=== PATIENT | female | born 1940 | race Hispanic/Latino ===

== ENCOUNTER 2017-10-13 18:37 | Observation (INO) | payer MEDICARE, BC ==
[2017-10-13] MEDS ORDERED: Aspirin 325 mg EC Tablets PO STA (19:37)
--- NOTE | 2017-10-13 19:37 | C.PDOC ---
History Of Present Illness Patient presents to the ER with a complaint of intermittent chest pain for the past 2 days, associated with diffuse body aches. Patient is currently speaking in complete sentences, states she feels like her chest discomfort has now subsided. Patient also notes she felt her blood pressure has been elevating, she spoke with her PMD who increased her dose of HTN medication. Denies SOB, fever, or chills. Time Seen by Provider: 10/13/17 19:37 Chief Complaint (Nursing): Flu-like Symptoms History Per: Patient History/Exam Limitations: no limitations Onset/Duration Of Symptoms: Days, Intermittent Episodes Current Symptoms Are (Timing): Still Present Severity: Moderate Pain Scale Rating Of: 4 Reports Recently: Treated By A Physician Recent travel outside of the [place]: No Additional History Per: Family Past Medical History Reviewed: Historical Data, Nursing Documentation, Vital Signs Vital Signs: Last Vital Signs Temp 97.7 F 10/13/17 18:42 Pulse 61 10/13/17 18:42 Resp 97 H 10/13/17 18:42 BP 171/17 H 10/13/17 18:42 Pulse Ox 99 10/13/17 21:28 - Medical History PMH: Depression, HTN, Hypercholesterolemia Family History: States: No Known Family Hx - Social History Hx Alcohol Use: No Hx Substance Use: No Review Of Systems Constitutional: Negative for: Fever, Chills Cardiovascular: Positive for: Chest Pain. Negative for: Palpitations Respiratory: Negative for: Cough, Shortness of Breath Gastrointestinal: Negative for: Nausea, Vomiting Musculoskeletal: Positive for: Other (Body aches) Skin: Negative for: Rash Neurological: Negative for: Weakness Psych: Negative for: Anxiety Physical Exam - Physical Exam Appears: Non-toxic Skin: Warm, Dry Head: Normacephalic Eye(s): bilateral: Normal Inspection Oral Mucosa: Moist Neck: Supple Chest: Symmetrical, No Tenderness Cardiovascular: Rhythm Regular Respiratory: No Rales, No Rhonchi, No Wheezing Gastrointestinal/Abdominal: Soft, No Tenderness Back: Normal Inspection Extremity: Normal ROM Extremity: Bilateral: Atraumatic Pulses: Left Dorsalis Pedis: Normal, Right Dorsalis Pedis: Normal Neurological/Psych: Oriented x3 Gait: Steady ED Course And Treatment - Laboratory Results Result Diagrams: 10/13/17 19:54 10/13/17 19:54 ECG: Interpreted By Me, Viewed By Me ECG Rhythm: Sinus Rhythm (59), Nonspecific Changes O2 Sat by Pulse Oximetry: 99 (Room air) Pulse Ox Interpretation: Normal - Radiology CXR: Interpreted by Me, Viewed By Me CXR Interpretation: No: Infiltrates, Fracture, Pnemothorax Progress Note: EKG, blood work, CXR, and urinalysis ordered. Aspirin and tamiflu administered. Disposition Discussed With DrRogers: Ankit Sandoval Comment: accepted the pt on his service and took over the care at 9:57PM Doctor Will See Patient In The: ED Counseled Patient/Family Regarding: Studies Performed, Diagnosis - Disposition Disposition: HOSPITALIZED Disposition Time: 19:37 Condition: FAIR Forms: [facility] (Icelandic) - POA Present On Arrival: None - Clinical Impression Clinical Impression: Chest pain Decision To Admit - Pt Status Changed To: Hospital Disposition Of: Observation - . Bed Request Type: Telemetry Patient Diagnosis: Chest pain
[2017-10-13 19:57] LABS: BASO % 0.4 % (0.0-2.0); EOS # 0.1 K/uL (0.0-0.7); EOS % 1.1 % (0.0-4.0); HEMOGLOBIN 13.2 g/dL (11.0-16.0); LYMPH # 2.6 K/uL (1.0-4.3); LYMPH % 29.4 % (20.0-40.0); MEAN CELL VOLUME 91.8 fL (81.0-99.0); MEAN CORPUSCULAR HEMOGLOBIN 32.3 pg (27.0-31.0); MEAN CORPUSCULAR HGB CONC 35.2 g/dL (33.0-37.0); MEAN PLATELET VOLUME 8.5 fL (7.2-11.7); MONO # 0.6 K/uL (0.0-0.8); MONO % 7.2 % (0.0-10.0); NEUT # 5.5 K/uL (1.8-7.0); NEUT % 61.9 % (50.0-75.0); RBC 4.07 Mil/uL (3.80-5.20); RED CELL DISTRIBUTION WIDTH 13.6 % (11.5-14.5); WHITE BLOOD COUNT 8.9 K/uL (4.8-10.8)
[2017-10-13] MEDS ORDERED: Aspirin 325 mg EC Tablets PO ONE (19:59)
[2017-10-13 20:09] LABS: INR 0.9; PROTHROMBIN TIME 10.4 SECONDS (9.7-12.2)
[2017-10-13 20:10] LABS: ALB/GLOB RATIO 1.3 (1.0-2.1); ALBUMIN 4.1 g/dL (3.5-5.0); ALT/SGPT 38 U/L (9-52); AST/SGOT 31 U/L (14-36); BLOOD UREA NITROGEN 11 mg/dL (7-17); CALCIUM 9.1 mg/dl (8.6-10.4); GFR AFRICAN-AMERICAN > 60; GFR NON-AFRICAN AMERICAN > 60
[2017-10-13 20:30] LABS: SQUAMOUS EPITHIAL < 1 /hpf (0-5); URINE BACTERIA OCC (<OCC); URINE BILIRUBIN NEGATIVE (NEGATIVE); URINE BLOOD NEGATIVE (NEGATIVE); URINE CLARITY Clear (Clear); URINE COLOR Yellow (YELLOW); URINE GLUCOSE (UA) NORMAL (Normal); URINE LEUKOCYTE ESTERASE 1+ Leu/uL (Negative); URINE NITRATE NEGATIVE (NEGATIVE); URINE PROTEIN NEGATIVE (NEGATIVE); URINE UROBILINOGEN NORMAL mg/dL (0.2-1.0)
--- NOTE | 2017-10-13 23:45 | CP.PCM.HP ---
<JavierLenin R - Last Filed: 10/14/17 00:19> History of Present Illness - History of Present Illness History of Present Illness: CC: "I'm feeling weak" HPI: Mrs Del Cid is a 77 year old female who presented to the ER today because starting 3 days ago she began feeling progressively weak and tired. Associated symptoms include body aches (back, arms, neck) - she's used a heating pad for relief from the body aches which helped significantly. This past Thursday she had a 2 hour episode of mid-sternal chest pain that was worse with movement. She described the pain as burning and deep. She denied palpitations. She is unsure if the chest pain was heartburn - she had a gastric ulcer in 2016 diagnosed via EGD. Additionally she states her BP has been elevated recently. She's been checking her BP at home for the past 1 week with occasional readings of systolic in the 190s. She states she is compliant with her medications and follows-up with her PMD as instructed. When asked if she was aware of any sick contacts, she replied her grandchildren have been sick recently with lingering coughs. PMD: Dr King PMHx: Breast CA s/p lumpectomy and chemo/radiation, HTN, HLD, Hx of Gastric ulcer, Depression, Sleep Disorder, Osteoporosis PSHx: Lumpectomy 2010, EGD/Colonoscopy 2016 - showed gastric ulcer and diverticulosis Allergies: Codeine - nausea, PCN - Stomach aches, Ciprofloxacin - Stomach aches Home Meds: Aspirin 81mg PO every other day (takes every other day due to hx of gastric ulcer), Amlodipine 10mg PO QD, Anastrozole 1mg O QD, Colesevelam 625mg PO BID, Escitalopram 20mg PO QD, Ezetimibe 10mg PO QD, HCTZ 25mg PO QD, Telmisartan 40mg PO QD, Trazodone 150mg PO QD FamHx: Father and Grandmother had CVAs; Mother had rare brain disease SocialHx: Smoked tobacco 1ppd for 20 years - quit in 1996, Drinks a glass a wine with dinner, Marijuana use in distant past, Lives with , Used to be a middle school director Code Status: Full Code Present on Admission - Present on Admission Any Indicators Present on Admission: No Review of Systems - Constitutional Constitutional: Fatigue, Lethargy, Malaise. absent: Chills, Fever, Sleep Apnea , Weight Gain, Weight Loss - EENT Eyes: absent: Change in Vision - Cardiovascular Cardiovascular: absent: Chest Pain, Chest Pain at Rest, Chest Pain with Activity , Dyspnea, Palpitations, Syncope - Respiratory Respiratory: absent: Cough, Dyspnea - Gastrointestinal Gastrointestinal: absent: Abdominal Pain, Diarrhea, Heartburn, Nausea, Vomiting - Genitourinary Genitourinary: absent: Dysuria - Integumentary Integumentary: absent: Bleeding Lesions - Neurological Neurological: absent: Confusion, Dizziness, Focal Weakness Past Patient History - Past Social History Smoking Status: Never Smoked - CARDIAC Hx Hypercholesterolemia: Yes Hx Hypertension: Yes - HEMATOLOGICAL/ONCOLOGICAL Hx Cancer: Yes (Breast Cancer) - PSYCHIATRIC Hx Depression: Yes Hx Substance Use: No - SURGICAL HISTORY Other/Comment: lumpectomy 2007 Meds Allergies/Adverse Reactions: Allergies Allergy/AdvReac Type Severity Reaction Status Date / Time codeine Allergy Verified 10/13/17 18:45 Penicillins Allergy Verified 10/13/17 18:45 Physical Exam - Constitutional Appears: Well, Non-toxic, No Acute Distress - Head Exam Head Exam: ATRAUMATIC, NORMAL INSPECTION - Eye Exam Eye Exam: EOMI Pupil Exam: PERRL - ENT Exam ENT Exam: Mucous Membranes Moist, Normal Oropharynx - Neck Exam Neck exam: Positive for: Normal Inspection. Negative for: Tenderness - Respiratory Exam Respiratory Exam: Clear to Auscultation Bilateral, NORMAL BREATHING PATTERN. absent: Rales, Rhonchi, Wheezes - Cardiovascular Exam Cardiovascular Exam: REGULAR RHYTHM, RRR, +S1, +S2. absent: Bradycardia, Tachycardia, Gallop, JVD, Rubs, Systolic Murmur - GI/Abdominal Exam GI & Abdominal Exam: Normal Bowel Sounds, Soft. absent: Distended, Guarding, Mass, Organomegaly, Tenderness - Extremities Exam Extremities exam: Positive for: normal capillary refill, normal inspection, pedal pulses present. Negative for: pedal edema, tenderness - Back Exam Back exam: NORMAL INSPECTION. absent: CVA tenderness (L), CVA tenderness (R), rash noted, tenderness - Neurological Exam Neurological exam: Alert, CN II-XII Intact, Oriented x3, Reflexes Normal - Psychiatric Exam Psychiatric exam: Normal Affect, Normal Mood - Skin Skin Exam: Intact, Normal Color, Warm Results - Vital Signs Recent Vital Signs: Last Vital Signs Temp 97.7 F 10/13/17 18:42 Pulse 61 10/13/17 23:03 Resp 20 10/13/17 23:03 BP 142/60 10/13/17 23:03 Pulse Ox 96 10/13/17 23:03 - Labs Result Diagrams: 10/13/17 19:54 10/13/17 19:54 Labs: Laboratory Results - last 24 hr 10/13/17 10/13/17 10/13/17 19:54 19:54 19:54 WBC 8.9 RBC 4.07 Hgb 13.2 Hct 37.4 MCV 91.8 MCH 32.3 H MCHC 35.2 RDW 13.6 Plt Count 192 D MPV 8.5 Neut % (Auto) 61.9 Lymph % (Auto) 29.4 [place] % (Auto) 7.2 Eos % (Auto) 1.1 Baso % (Auto) 0.4 Neut # (Auto) 5.5 Lymph # (Auto) 2.6 [place] # (Auto) 0.6 Eos # (Auto) 0.1 Baso # (Auto) 0.0 PT 10.4 INR 0.9 APTT 27 Sodium 127 L Potassium 3.7 Chloride 93 L Carbon Dioxide 27 Anion Gap 11 BUN 11 Creatinine 0.6 L Est GFR ( Amer) > 60 Est GFR (Non-Af Amer) > 60 Random Glucose 91 Calcium 9.1 Total Bilirubin 0.4 AST 31 ALT 38 Alkaline Phosphatase 36 L Troponin I < 0.0120 Total Protein 7.1 Albumin 4.1 Globulin 3.0 Albumin/Globulin Ratio 1.3 Urine Color Urine Clarity Urine pH Ur Specific [place] Urine Protein Urine Glucose (UA) Urine Ketones Urine Blood Urine Nitrate Urine Bilirubin Urine Urobilinogen Ur Leukocyte Esterase Urine WBC (Auto) Urine RBC (Auto) Ur Squamous Epith Cells Urine Bacteria 10/13/17 20:24 WBC RBC Hgb Hct MCV MCH MCHC RDW Plt Count MPV Neut % (Auto) Lymph % (Auto) [place] % (Auto) Eos % (Auto) Baso % (Auto) Neut # (Auto) Lymph # (Auto) [place] # (Auto) Eos # (Auto) Baso # (Auto) PT INR APTT Sodium Potassium Chloride Carbon Dioxide Anion Gap BUN Creatinine Est GFR ( Amer) Est GFR (Non-Af Amer) Random Glucose Calcium Total Bilirubin AST ALT Alkaline Phosphatase Troponin I Total Protein Albumin Globulin Albumin/Globulin Ratio Urine Color Yellow Urine Clarity Clear Urine pH 6.0 Ur Specific [place] 1.010 Urine Protein Negative Urine Glucose (UA) Normal Urine Ketones Negative Urine Blood Negative Urine Nitrate Negative Urine Bilirubin Negative Urine Urobilinogen Normal Ur Leukocyte Esterase 1+ H Urine WBC (Auto) 8 H Urine RBC (Auto) < 1 Ur Squamous Epith Cells < 1 Urine Bacteria Occ H Assessment & Plan (1) Chest pain Assessment and Plan: Rule out ACS 1st Troponin NEGATIVE EKG showed sinus bradycardia, no ST or T wave changes identified by technical writer F/U serial ROMIs/EKGs F/U ECHO Meds: Aspirin 325mg PO ONCE in ED Aspirin 81mg PO QD Crestor 10mg PO HS Status: Acute Priority: High (2) Fatigue Assessment and Plan: F/U Flu swab F/U TSH/T4 Tamiflu 75mg PO BID Status: Acute (3) HTN (hypertension) Assessment and Plan: BP well controlled Cont home med Amlodipine 10mg PO QD Cont home med HCTZ 25mg PO QD Cont home med Telmisartan 40mg PO QD Heart healthy diet w/ salt restriction Status: Chronic Priority: High (4) Hx of breast cancer Assessment and Plan: Cont home med Anastrozole 1mg PO QD Status: Chronic Priority: Medium (5) HLD (hyperlipidemia) Assessment and Plan: Cont home med Ezetimibe 10mg PO QD Cont home med Colesevelam Status: Chronic Priority: Medium (6) Hx of gastric ulcer Assessment and Plan: Gastric ulcer identified in 2016 via EGD Patient was Rx'd PPI but no longer takes it (only when she has heartburn) Protonix 40mg PO QD Status: Chronic Priority: Medium (7) Sleep disorder Assessment and Plan: Cont home med Trazodone 150mg PO HS Status: Chronic Priority: Medium (8) Depression Assessment and Plan: Cont home med Escitalopram 20mg PO QD Status: Chronic Priority: Medium (9) Prophylactic measure Assessment and Plan: SCDs, Lovenox 40mg SC QD Protonix 40mg PO QD Status: Acute Priority: Low <Ankit Sandoval - Last Filed: 10/14/17 06:25> Results - Vital Signs Recent Vital Signs: Last Vital Signs Temp 97.4 F L 10/14/17 00:11 Pulse 57 L 10/14/17 01:00 Resp 18 10/14/17 00:11 BP 159/74 H 10/14/17 00:11 Pulse Ox 100 10/14/17 00:11 - Labs Result Diagrams: 10/13/17 19:54 10/13/17 19:54 Labs: Laboratory Results - last 24 hr 10/13/17 10/13/17 10/13/17 19:54 19:54 19:54 WBC 8.9 RBC 4.07 Hgb 13.2 Hct 37.4 MCV 91.8 MCH 32.3 H MCHC 35.2 RDW 13.6 Plt Count 192 D MPV 8.5 Neut % (Auto) 61.9 Lymph % (Auto) 29.4 [place] % (Auto) 7.2 Eos % (Auto) 1.1 Baso % (Auto) 0.4 Neut # (Auto) 5.5 Lymph # (Auto) 2.6 [place] # (Auto) 0.6 Eos # (Auto) 0.1 Baso # (Auto) 0.0 PT 10.4 INR 0.9 APTT 27 Sodium 127 L Potassium 3.7 Chloride 93 L Carbon Dioxide 27 Anion Gap 11 BUN 11 Creatinine 0.6 L Est GFR ( Amer) > 60 Est GFR (Non-Af Amer) > 60 Random Glucose 91 Calcium 9.1 Total Bilirubin 0.4 AST 31 ALT 38 Alkaline Phosphatase 36 L Total Creatine Kinase CK-MB (Mass) Troponin I < 0.0120 Total Protein 7.1 Albumin 4.1 Globulin 3.0 Albumin/Globulin Ratio 1.3 TSH 3rd Generation Urine Color Urine Clarity Urine pH Ur Specific [place] Urine Protein Urine Glucose (UA) Urine Ketones Urine Blood Urine Nitrate Urine Bilirubin Urine Urobilinogen Ur Leukocyte Esterase Urine WBC (Auto) Urine RBC (Auto) Ur Squamous Epith Cells Urine Bacteria Influenza Typ A,B (EIA) 10/13/17 10/13/17 10/13/17 20:24 23:33 23:55 WBC RBC Hgb Hct MCV MCH MCHC RDW Plt Count MPV Neut % (Auto) Lymph % (Auto) [place] % (Auto) Eos % (Auto) Baso % (Auto) Neut # (Auto) Lymph # (Auto) [place] # (Auto) Eos # (Auto) Baso # (Auto) PT INR APTT Sodium Potassium Chloride Carbon Dioxide Anion Gap BUN Creatinine Est GFR ( Amer) Est GFR (Non-Af Amer) Random Glucose Calcium Total Bilirubin AST ALT Alkaline Phosphatase Total Creatine Kinase CK-MB (Mass) Troponin I Total Protein Albumin Globulin Albumin/Globulin Ratio TSH 3rd Generation 1.45 Urine Color Yellow Urine Clarity Clear Urine pH 6.0 Ur Specific [place] 1.010 Urine Protein Negative Urine Glucose (UA) Normal Urine Ketones Negative Urine Blood Negative Urine Nitrate Negative Urine Bilirubin Negative Urine Urobilinogen Normal Ur Leukocyte Esterase 1+ H Urine WBC (Auto) 8 H Urine RBC (Auto) < 1 Ur Squamous Epith Cells < 1 Urine Bacteria Occ H Influenza Typ A,B (EIA) Negative for flu a/b 10/14/17 01:54 WBC RBC Hgb Hct MCV MCH MCHC RDW Plt Count MPV Neut % (Auto) Lymph % (Auto) [place] % (Auto) Eos % (Auto) Baso % (Auto) Neut # (Auto) Lymph # (Auto) [place] # (Auto) Eos # (Auto) Baso # (Auto) PT INR APTT Sodium Potassium Chloride Carbon Dioxide Anion Gap BUN Creatinine Est GFR ( Amer) Est GFR (Non-Af Amer) Random Glucose Calcium Total Bilirubin AST ALT Alkaline Phosphatase Total Creatine Kinase 72 CK-MB (Mass) 1.28 Troponin I < 0.0120 Total Protein Albumin Globulin Albumin/Globulin Ratio TSH 3rd Generation Urine Color Urine Clarity Urine pH Ur Specific [place] Urine Protein Urine Glucose (UA) Urine Ketones Urine Blood Urine Nitrate Urine Bilirubin Urine Urobilinogen Ur Leukocyte Esterase Urine WBC (Auto) Urine RBC (Auto) Ur Squamous Epith Cells Urine Bacteria Influenza Typ A,B (EIA) Assessment & Plan - Date & Time Date: 10/14/17 (I have seen and examined the patient. I agree with the findings and plan of care as documented by Dr. Herrera. Patient with chest pain. History of hypertension and hypercholesterolemia. Continue home meds. ROMIx3 with EKG. Aspirin. Monitor for acute changes.) Time: 06:24 Attending/Attestation - Attestation I have personally seen and examined this patient.: Yes I have fully participated in the care of the patient.: Yes I have reviewed all pertinent clinical information: Yes
[2017-10-14 00:13] VITALS: RESP 18
[2017-10-14 02:20] LABS: CK-MB 1.28 ng/mL (0.0-3.38)
--- NOTE | 2017-10-14 07:20 | RAD ---
PROCEDURE: CHEST RADIOGRAPH, 1 VIEW HISTORY: chest pain COMPARISON: None available. FINDINGS: LUNGS: No acute infiltrate bilaterally. There is mild right hemidiaphragm elevation. Rotation of the patient toward the right accentuates the ascending thoracic aorta. PLEURA: No pneumothorax or pleural fluid seen. CARDIOVASCULAR: Questionable cardiomegaly. No pulmonary vascular derangement. OSSEOUS STRUCTURES: No significant abnormalities. VISUALIZED UPPER ABDOMEN: Normal. OTHER FINDINGS: None. IMPRESSION: Elevated right hemidiaphragm. No acute infiltrate bilaterally, pleural effusion or pneumothorax. Questionable cardiomegaly.
--- NOTE | 2017-10-14 07:49 | CARD ---
APPROVED REPORT EKG Measurement Heart [id number] <Conclusion> Sinus bradycardia Possible Left atrial enlargement Inferior infarct, age undetermined Abnormal ECG
[2017-10-14 08:04] VITALS: BP 134/62; TEMP 97.8; O2SAT 95
[2017-10-14 08:19] LABS: BASO % 0.4 % (0.0-2.0); EOS # 0.1 K/uL (0.0-0.7); EOS % 0.9 % (0.0-4.0); HEMOGLOBIN 12.9 g/dL (11.0-16.0); LYMPH # 2.1 K/uL (1.0-4.3); LYMPH % 26.5 % (20.0-40.0); MEAN CELL VOLUME 91.5 fL (81.0-99.0); MEAN CORPUSCULAR HEMOGLOBIN 32.7 pg (27.0-31.0); MEAN CORPUSCULAR HGB CONC 35.8 g/dL (33.0-37.0); MEAN PLATELET VOLUME 8.8 fL (7.2-11.7); MONO # 0.7 K/uL (0.0-0.8); MONO % 8.8 % (0.0-10.0); NEUT # 4.9 K/uL (1.8-7.0); NEUT % 63.4 % (50.0-75.0); RBC 3.95 Mil/uL (3.80-5.20); RED CELL DISTRIBUTION WIDTH 13.3 % (11.5-14.5); WHITE BLOOD COUNT 7.8 K/uL (4.8-10.8)
[2017-10-14 08:31] LABS: ALB/GLOB RATIO 1.3 (1.0-2.1); ALBUMIN 3.7 g/dL (3.5-5.0); ALT/SGPT 32 U/L (9-52); AST/SGOT 27 U/L (14-36); BLOOD UREA NITROGEN 10 mg/dL (7-17); CALCIUM 8.8 mg/dl (8.6-10.4); GFR AFRICAN-AMERICAN > 60; GFR NON-AFRICAN AMERICAN > 60
[2017-10-14 08:38] LABS: CK-MB 1.09 ng/mL (0.0-3.38)
--- NOTE | 2017-10-14 09:45 | CP.PCM.DIS ---
Provider - Provider Date of Admission: 10/13/17 21:57 Attending physician: Ankit Sandoval MD Time Spent in preparation of Discharge (in minutes): 55 Hospital Course - Lab Results Lab Results: Most Recent Lab Values WBC 7.8 K/uL (4.8-10.8) 10/14/17 08:20 RBC 3.95 Mil/uL (3.80-5.20) 10/14/17 08:20 Hgb 12.9 g/dL (11.0-16.0) 10/14/17 08:20 Hct 36.1 % (34.0-47.0) 10/14/17 08:20 MCV 91.5 fL (81.0-99.0) 10/14/17 08:20 MCH 32.7 pg (27.0-31.0) H 10/14/17 08:20 MCHC 35.8 g/dL (33.0-37.0) 10/14/17 08:20 RDW 13.3 % (11.5-14.5) 10/14/17 08:20 Plt Count 187 K/uL (130-400) 10/14/17 08:20 MPV 8.8 fL (7.2-11.7) 10/14/17 08:20 Neut % (Auto) 63.4 % (50.0-75.0) 10/14/17 08:20 Lymph % (Auto) 26.5 % (20.0-40.0) 10/14/17 08:20 [place] % (Auto) 8.8 % (0.0-10.0) 10/14/17 08:20 Eos % (Auto) 0.9 % (0.0-4.0) 10/14/17 08:20 Baso % (Auto) 0.4 % (0.0-2.0) 10/14/17 08:20 Neut # (Auto) 4.9 K/uL (1.8-7.0) 10/14/17 08:20 Lymph # (Auto) 2.1 K/uL (1.0-4.3) 10/14/17 08:20 [place] # (Auto) 0.7 K/uL (0.0-0.8) 10/14/17 08:20 Eos # (Auto) 0.1 K/uL (0.0-0.7) 10/14/17 08:20 Baso # (Auto) 0.0 K/uL (0.0-0.2) 10/14/17 08:20 PT 10.4 SECONDS (9.7-12.2) 10/13/17 19:54 INR 0.9 10/13/17 19:54 APTT 27 SECONDS (21-34) 10/13/17 19:54 Sodium 132 mmol/L (132-148) 10/14/17 08:05 Potassium 3.8 mmol/L (3.6-5.2) 10/14/17 08:05 Chloride 96 mmol/L (98-107) L 10/14/17 08:05 Carbon Dioxide 28 mmol/L (22-30) 10/14/17 08:05 Anion Gap 11 (10-20) 10/14/17 08:05 BUN 10 mg/dL (7-17) 10/14/17 08:05 Creatinine 0.7 mg/dL (0.7-1.2) 10/14/17 08:05 Est GFR ( Amer) > 60 10/14/17 08:05 Est GFR (Non-Af Amer) > 60 10/14/17 08:05 Random Glucose 91 mg/dL (65-105) 10/14/17 08:05 Calcium 8.8 mg/dl (8.6-10.4) 10/14/17 08:05 Total Bilirubin 0.6 mg/dL (0.2-1.3) 10/14/17 08:05 AST 27 U/L (14-36) 10/14/17 08:05 ALT 32 U/L (9-52) 10/14/17 08:05 Alkaline Phosphatase 28 U/L (38-126) L D 10/14/17 08:05 Total Creatine Kinase 70 U/L (30-135) 10/14/17 08:05 CK-MB (Mass) 1.09 ng/mL (0.0-3.38) 10/14/17 08:05 Troponin I < 0.0120 ng/mL (0.00-0.120) 10/14/17 08:05 Total Protein 6.6 g/dL (6.3-8.3) 10/14/17 08:05 Albumin 3.7 g/dL (3.5-5.0) 10/14/17 08:05 Globulin 2.9 gm/dL (2.2-3.9) 10/14/17 08:05 Albumin/Globulin Ratio 1.3 (1.0-2.1) 10/14/17 08:05 Free T4 0.83 ng/dL (0.78-2.19) 10/14/17 08:05 TSH 3rd Generation 1.45 mIU/L (0.46-4.68) 10/13/17 23:33 Urine Color Yellow (YELLOW) 10/13/17 20:24 Urine Clarity Clear (Clear) 10/13/17 20:24 Urine pH 6.0 (5.0-8.0) 10/13/17 20:24 Ur Specific [place] 1.010 (1.003-1.030) 10/13/17 20:24 Urine Protein Negative mg/dL (NEGATIVE) 10/13/17 20:24 Urine Glucose (UA) Normal mg/dL (Normal) 10/13/17 20:24 Urine Ketones Negative mg/dL (NEGATIVE) 10/13/17 20:24 Urine Blood Negative (NEGATIVE) 10/13/17 20:24 Urine Nitrate Negative (NEGATIVE) 10/13/17 20:24 Urine Bilirubin Negative (NEGATIVE) 10/13/17 20:24 Urine Urobilinogen Normal mg/dL (0.2-1.0) 10/13/17 20:24 Ur Leukocyte Esterase 1+ [place]ara/uL (Negative) H 10/13/17 20:24 Urine WBC (Auto) 8 /hpf (0-5) H 10/13/17 20:24 Urine RBC (Auto) < 1 /hpf (0-3) 10/13/17 20:24 Ur Squamous Epith Cells < 1 /hpf (0-5) 10/13/17 20:24 Urine Bacteria Occ (<OCC) H 10/13/17 20:24 Influenza Typ A,B (EIA) Negative for flu a/b (NEGATIVE) 10/13/17 23:55 - Hospital Course Hospital Course: Upon Admission: CC: "I'm feeling weak" HPI: Mrs Del Cid is a 77 year old female who presented to the ER today because starting 3 days ago she began feeling progressively weak and tired. Associated symptoms include body aches (back, arms, neck) - she's used a heating pad for relief from the body aches which helped significantly. This past Thursday she had a 2 hour episode of mid-sternal chest pain that was worse with movement. She described the pain as burning and deep. She denied palpitations. She is unsure if the chest pain was heartburn - she had a gastric ulcer in 2016 diagnosed via EGD. Additionally she states her BP has been elevated recently. She's been checking her BP at home for the past 1 week with occasional readings of systolic in the 190s. She states she is compliant with her medications and follows-up with her PMD as instructed. When asked if she was aware of any sick contacts, she replied her grandchildren have been sick recently with lingering coughs. PMD: Dr King PMHx: Breast CA s/p lumpectomy and chemo/radiation, HTN, HLD, Hx of Gastric ulcer, Depression, Sleep Disorder, Osteoporosis PSHx: Lumpectomy 2010, EGD/Colonoscopy 2016 - showed gastric ulcer and diverticulosis Allergies: Codeine - nausea, PCN - Stomach aches, Ciprofloxacin - Stomach aches Home Meds: Aspirin 81mg PO every other day (takes every other day due to hx of gastric ulcer), Amlodipine 10mg PO QD, Anastrozole 1mg O QD, Colesevelam 625mg PO BID, Escitalopram 20mg PO QD, Ezetimibe 10mg PO QD, HCTZ 25mg PO QD, Telmisartan 40mg PO QD, Trazodone 150mg PO QD FamHx: Father and Grandmother had CVAs; Mother had rare brain disease SocialHx: Smoked tobacco 1ppd for 20 years - quit in 1996, Drinks a glass a wine with dinner, Marijuana use in distant past, Lives with , 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 (1) Chest pain Assessment and Plan: Rule out ACS Troponin x3 NEGATIVE EKG showed sinus bradycardia, no ST or T wave changes identified by display card writer F/U ECHO - patient will need to follow up results with PMD Dr. King. Meds: Aspirin 325mg PO ONCE in ED Aspirin 81mg PO QD Crestor 10mg PO HS Status: Acute Priority: High (2) Fatigue Assessment and Plan: Flu swab - negative TSH/T4- WNL Tamiflu 75mg PO BID x 5 days Status: Acute (3) HTN (hypertension) Assessment and Plan: BP well controlled Cont home med Amlodipine 10mg PO QD Cont home med HCTZ 25mg PO QD Cont home med Telmisartan 40mg PO QD Heart healthy diet w/ salt restriction Status: Chronic Priority: High (4) Hx of breast cancer Assessment and Plan: Cont home med Anastrozole 1mg PO QD Status: Chronic Priority: Medium (5) HLD (hyperlipidemia) Assessment and Plan: Cont home med Ezetimibe 10mg PO QD Cont home med Colesevelam Status: Chronic Priority: Medium (6) Hx of gastric ulcer Assessment and Plan: Gastric ulcer identified in 2016 via EGD Patient was Rx'd PPI but no longer takes it (only when she has heartburn) Protonix 40mg PO QD Status: Chronic Priority: Medium (7) Sleep disorder Assessment and Plan: Cont home med Trazodone 150mg PO HS Status: Chronic Priority: Medium (8) Depression Assessment and Plan: Cont home med Escitalopram 20mg PO QD Status: Chronic Priority: Medium Please review EMR for full record. Discharge Exam - Additional Findings Additional findings: - Constitutional Appears: Well, Non-toxic, No Acute Distress - Head Exam Head Exam: ATRAUMATIC, NORMAL INSPECTION - Eye Exam Eye Exam: EOMI Pupil Exam: PERRL - ENT Exam ENT Exam: Mucous Membranes Moist, Normal Oropharynx - Neck Exam Neck exam: Positive for: Normal Inspection. Negative for: Tenderness - Respiratory Exam Respiratory Exam: Clear to Auscultation Bilateral, NORMAL BREATHING PATTERN. absent: Rales, Rhonchi, Wheezes - Cardiovascular Exam Cardiovascular Exam: REGULAR RHYTHM, RRR, +S1, +S2. absent: Bradycardia, Tachycardia, Gallop, JVD, Rubs, Systolic Murmur - GI/Abdominal Exam GI & Abdominal Exam: Normal Bowel Sounds, Soft. absent: Distended, Guarding, Mass, Organomegaly, Tenderness - Extremities Exam Extremities exam: Positive for: normal capillary refill, normal inspection, pedal pulses present. Negative for: pedal edema, tenderness - Back Exam Back exam: NORMAL INSPECTION. absent: CVA tenderness (L), CVA tenderness (R), rash noted, tenderness - Neurological Exam Neurological exam: Alert, CN II-XII Intact, Oriented x3, Reflexes Normal - Psychiatric Exam Psychiatric exam: Normal Affect, Normal Mood - Skin Skin Exam: Intact, Normal Color, Warm Discharge Plan - Discharge Medications Prescriptions: Oseltamivir [Tamiflu Cap] 75 mg PO BID #8 cap Pantoprazole [Protonix EC Tab] 40 mg PO DAILY #30 ect - Follow Up Plan Condition: FAIR Disposition: HOME/ ROUTINE Additional Instructions: Please continue to take Tamiflu 75mg by mouth twice a day for 4 more days (to complete a total course of 5 days). Please continue to hydrate yourself, rest, and you can take tylenol or motrin as needed for pain. Please also take Protonix 40mg by mouth (this will help protect your stomach) the days that you take your aspirin since you have history of gastric ulcer. Continue to monitor your blood pressure 15 min after sitting calmly in a chair ( no caffeine, smoking prior), recording your readings and bring to Dr. King. Also an ECHO (sonogram of your heart was done to view your heart function) was done, the report will not be ready for you discharge. Once the results are up, Dr. King can view the report and go over the results with you. (We will also fax the results to him) Please report to the ED if your symptoms return or worsen. Referrals: Dmitri King DO [[facility]] -
[2017-10-14] MEDS ORDERED: Pantoprazole 40 mg EC Tab PO SCH (10:00)
[2017-10-14] MEDS ORDERED: COLESEVELAM HCL 625 MG PO SCH (10:00)
[2017-10-14] MEDS ORDERED: Enoxaparin 40 mg Syringe SC SCH (10:00)
[2017-10-14] MEDS ORDERED: TELMISARTAN 40 MG PO SCH (10:00)
[2017-10-14 12:10] VITALS: PULSE 62
--- NOTE | 2017-10-15 00:04 | CARD ---
APPROVED REPORT EXAM: Two-dimensional and M-mode echocardiogram with Doppler and color Doppler. Other Information Quality : GoodRhythm : INDICATION Chest Pain LAST ECHO 4 YRS AGO, CA OF BREAST RISK FACTORS Hypertension Hyperlipidemia 2D DIMENSIONS IVSd1.2 (0.7-1.1cm)LVDd4.8 (3.9-5.9cm) PWd0.7 (0.7-1.1cm)LVDs3.3 (2.5-4.0cm) FS (%) 30.5 %LVEF (%)57.8 (>50%) M-Mode DIMENSIONS RVDd1.95 (2.1-3.2cm)Left Atrium (MM)4.61 (2.5-4.0cm) IVSd1.46 (0.7-1.1cm)Aortic Root3.14 (2.2-3.7cm) LVDd4.85 (4.0-5.6cm)Aortic Cusp Exc.2.11 (1.5-2.0cm) PWd1.04 (0.7-1.1cm)FS (%) 38 % LVDs3.03 (2.0-3.8cm)LVEF (%)68 (>50%) Aortic Valve AoV Peak Hddxswsz238.9cm/sAoV VTI48.6cmAO Peak GR.15mmHg AO Mean GR.9mmHgAI P 1/2 [id number] Mitral Valve MV E Gzzgbuod994.6cm/sMV A Wexurlkw759.4cm/sE/A ratio0.9 TDI E/Lateral E'0.0E/Medial E'0.0 Tricuspid Valve TR Peak Osowxhti318dm/sTR Peak Gr.[id number] LEFT VENTRICLE There is mild asymmetric left ventricular hypertrophy. Left ventricle systolic function is normal. The Ejection Fraction is 55-60%. There is normal LV segmental wall motion. The left ventricular diastolic function is normal. No left ventricle thrombus noted on this study. RIGHT VENTRICLE The right ventricle is normal size. The right ventricular systolic function is normal. ATRIA The left atrium is mildly dilated. The right atrium size is normal. AORTIC VALVE The aortic valve is moderately sclerotic. The aortic valve is trileaflet. There is mild to moderate aortic regurgitation. There is no aortic valvular stenosis. MITRAL VALVE Mitral annular calcification is moderate. There is no evidence of mitral valve prolapse. There is no mitral valve stenosis. Mitral regurgitation is mild. TRICUSPID VALVE The tricuspid valve is normal in structure. There is mild to moderate tricuspid regurgitation. Right ventricular systolic pressure is estimated at 30-40 mmHg. There is no pulmonary hypertension. There is no tricuspid valve prolapse or vegetation. There is no tricuspid valve stenosis. PULMONIC VALVE The pulmonic valve is not well visualized. There is no pulmonic valvular regurgitation. GREAT VESSELS The aortic root is normal in size. The IVC is normal in size and collapses >50% with inspiration. PERICARDIAL EFFUSION There is no pericardial effusion. There is no pleural effusion. <Conclusion> There is mild asymmetric left ventricular hypertrophy. Left ventricle systolic function is normal with Ejection Fraction of 55-60%. The left ventricular diastolic function is normal. The right ventricle is normal size. The right ventricular systolic function is normal. The left atrium is mildly dilated. The right atrium size is normal. There is mild to moderate aortic regurgitation. Mitral regurgitation is mild. There is mild to moderate tricuspid regurgitation.
--- NOTE | 2017-10-15 19:12 | CARD ---
APPROVED REPORT EKG Measurement Heart [id number] <Conclusion> Sinus bradycardia Possible Left atrial enlargement Borderline ECG
== END 2017-10-14 12:10 | disposition home or self-care (01) ==
LOC: C.ER 18:37 → C.9E 21:57 → C.5S 23:16
PROVIDERS: ADMIT Family Medicine; ATTEND Family Medicine
DX: R07.9 Chest pain, unspecified (principal); E78.00 Pure hypercholesterolemia, unspecified; E78.5 Hyperlipidemia, unspecified; F32.9 Major depressive disorder, single episode, unspecified; I10 Essential (primary) hypertension; K25.9 Gastric ulcer, unspecified as acute or chronic, without hemorrhage or perforation; M81.0 Age-related osteoporosis without current pathological fracture; Z79.82 Long term (current) use of aspirin; Z85.3 Personal history of malignant neoplasm of breast; Z87.11 Personal history of peptic ulcer disease; F17.210 Nicotine dependence, cigarettes, uncomplicated
CPT/HCPCS: 36415; 71045; 80053; 81001; 84439; 84443; 84484; 85025; 85610; 85730; 87804; 93005; 93306; 99285; G0378; J1650